=== PATIENT | female | born 1985 | race Caucasian/White ===

== ENCOUNTER 2017-01-19 15:11 | Emergency (ER) | payer SELFPAY ==
[~2017-01-19] VITALS: Ht 172.7 cm; Wt 104.0 kg
[~2017-01-19 15:11] MED LIST: OMEP-110 PO
[2017-01-19] MEDS ORDERED: MORPHINE SULFATE 4 MG/ML, 1ML ONE ×2 (15:59→18:27)
[2017-01-19] MEDS ORDERED: ONDANSETRON 2MG/ML, 2ML ONE (15:59)
[2017-01-19] MEDS ORDERED: ONDANSETRON 2MG/ML, 2ML IVPush ONE (16:00)
[2017-01-19] MEDS ORDERED: SODIUM CHLORIDE FLUSH 10ML SYR IVF ONE (16:00)
[2017-01-19] MEDS ORDERED: SODIUM CHLORIDE 0.9% 1,000ML IVBOLUS ONE (16:00)
[2017-01-19] MEDS: MORPHINE SULFATE 4 MG/ML, 1ML IVPush PRN ×2 (16:17→18:30)
[2017-01-19 16:22] LABS: BLOOD UREA NITROGEN 19 mg/dL (7-18)
[2017-01-19 16:28] LABS: ASPARTATE AMINO TRANSFERASE 8 U/L (15-37)
[2017-01-19 18:34] VITALS: BP 109/60
== END 2017-01-19 18:52 | disposition home or self-care (01) ==
LOC: ED 18:46
DX: N30.00 Acute cystitis without hematuria (principal); R10.33 Periumbilical pain
CPT/HCPCS: 36415; 76700; 80053; 81001; 83690; 84703; 85025; 87086; 96361; 96374; 96375; 96376; 99285; J2405; J7030